=== PATIENT | female | born 1975 | race American Indian/Alaskan Native ===

== ENCOUNTER 2017-07-29 17:29 | Emergency (ER) | payer BC, OTHER ==
[2017-07-29 18:37] LABS: Basophils % (Auto) 0.5 % (0.0-1.8); Eosinophils % (Auto) 1.5 % (0.0-4.3); Hematocrit 46.2 % (30.3-42.9); Hemoglobin 15.3 gm/dl (10.1-14.3); Mean Corpuscular HGB Conc 33 % (30-34); Mean Corpuscular Hemoglobin 31 pg (28-32); Mean Corpuscular Volume 93 fl (79-97); Platelet Count 179 K/mm3 (140-440); Red Blood Count 4.95 M/mm3 (3.65-5.03); Red Cell Distribution Width 14.8 % (13.2-15.2); White Blood Count 5.7 K/mm3 (4.5-11.0)
[2017-07-29 18:42] LABS: Anion Gap 20 mmol/L; BUN/Creatinine Ratio 16; Blood Urea Nitrogen 16 mg/dL (7-17); Calcium 9.3 mg/dL (8.4-10.2); Carbon Dioxide 24 mmol/L (22-30); Chloride 97.1 mmol/L (98-107); Glucose 84 mg/dL (65-100); Potassium 3.8 mmol/L (3.6-5.0); Sodium 137 mmol/L (137-145)
[2017-07-30] MEDS ORDERED: BENADRYL IV ONE (01:42)
[2017-07-30] MEDS ORDERED: REGLAN IV ONE (01:42)
[2017-07-30] MEDS ORDERED: TYLENOL PO ONE (01:42)
[2017-07-30] MEDS ORDERED: PEPCID IV ONE (01:42)
[2017-07-30] MEDS ORDERED: BENTYL PO ONE (01:42)
[2017-07-30] MEDS ORDERED: CARAFATE PO ONE (01:42)
[2017-07-30] MEDS ORDERED: NACL 0.9% 500 ML 500 ML IV ONE (01:43)
--- NOTE | 2017-07-30 01:43 | Emergency Department Report ---
ED General Adult HPI - General Chief complaint: Chest Pain Stated complaint: HYPERTENSIVE/HEADACHE/CHEST PAIN Time Seen by Provider: 07/30/17 01:25 Source: patient, RN notes reviewed, old records reviewed Mode of arrival: Ambulatory Limitations: No Limitations - History of Present Illness Initial comments: This is a 42-year-old female who is previously known to this provider. The patient has a past medical history of hypertension. The patient presents to the ER with 2 complaints. Her first complaint is headache. The headache has been present for 4-5 days. It started gradually a few days ago. It started in the occipital region, and then radiated to the mid scalp in the frontal region. The headache is not sudden or thunderclap in nature. It did not reach maximal intensity within an hour. It is not the worse headache of her life. Patient reports worst headache of her life a few months ago. She further reports that her mother has a family history of aneurysm. However there is no family history of aneurysm and her brothers or sisters. There is no posterior neck pain or neck stiffness. There is no neck rigidity. The patient's next complaint is chest pain. The chest pain is central. It does not radiate to the back, arms or neck. There is no vomiting, shortness of breath or diaphoresis. Patient reports that she is not , reports that she hasn't given in the past 2 months. Patient reports that she does not take control tablets, there is no leg pain, there is no leg swelling, no DVT or pulmonary embolus risk factors. Patient admitted to the hospital for chest pain last year, had a negative nuclear stress test. Patient denies recent aspirin use and/or cocaine use. -: Gradual Location: head, chest Quality: aching Consistency: intermittent Improves with: none Worsens with: none Associated Symptoms: chest pain, headaches. denies: shortness of breath - Related Data Home Medications Medication Instructions Recorded Confirmed Last Taken Citalopram Hydrobromide [celeXA] 20 mg PO DAILY 07/01/16 07/01/16 Unknown Hydrochlorothiazide 25 mg PO DAILY 07/01/16 07/01/16 Unknown Previous Rx's Medication Instructions Recorded Last Taken Type Acetaminophen [Tylenol Arthritis] 650 mg PO Q6HR PRN #30 tablet.er 07/30/17 Unknown Rx Ibuprofen [Motrin] 600 mg PO Q8H PRN #30 tablet 07/30/17 Unknown Rx Allergies Allergy/AdvReac Type Severity Reaction Status Date / Time No Known Allergies Allergy Verified 05/27/14 02:05 ED Review of Systems ROS: Stated complaint: HYPERTENSIVE/HEADACHE/CHEST PAIN Other details as noted in HPI Constitutional: denies: fever Eyes: denies: eye discharge ENT: denies: epistaxis Respiratory: see HPI Cardiovascular: as per HPI Gastrointestinal: denies: vomiting Genitourinary: as per HPI Musculoskeletal: as per HPI Skin: as per HPI Neurological: headache ED Past Medical Hx - Past Medical History Hx Hypertension: Yes Hx Kidney Stones: Yes (2011) - Surgical History Additional Surgical History: TUBAL LIGATION 1999. - Social History Smoking Status: Current Every Day Smoker Substance Use Type: Alcohol, Marijuana - Medications Home Medications: Home Medications Medication Instructions Recorded Confirmed Last Taken Type Citalopram Hydrobromide [celeXA] 20 mg PO DAILY 07/01/16 07/01/16 Unknown History Hydrochlorothiazide 25 mg PO DAILY 07/01/16 07/01/16 Unknown History Acetaminophen [Tylenol Arthritis] 650 mg PO Q6HR PRN #30 tablet.er 07/30/17 Unknown Rx Ibuprofen [Motrin] 600 mg PO Q8H PRN #30 tablet 07/30/17 Unknown Rx ED Physical Exam - General Limitations: No Limitations General appearance: alert, in no apparent distress - Head Head exam: Present: atraumatic, normocephalic - Eye Eye exam: Present: normal appearance, PERRL, EOMI, other (visual acuity intact to finger counting, color perception, reading at a close distance). Absent: nystagmus - ENT ENT exam: Present: normal exam, normal orophraynx, mucous membranes moist, normal external ear exam - Neck Neck exam: Present: normal inspection, full ROM - Respiratory Respiratory exam: Present: normal lung sounds bilaterally. Absent: respiratory distress - Cardiovascular Cardiovascular Exam: Present: regular rate, normal rhythm, normal heart sounds. Absent: systolic murmur, diastolic murmur, rubs, gallop - GI/Abdominal GI/Abdominal exam: Present: soft, normal bowel sounds. Absent: distended, tenderness, guarding, rebound, rigid, pulsatile mass - Extremities Exam Extremities exam: Present: normal inspection, full ROM, normal capillary refill. Absent: pedal edema, joint swelling, calf tenderness - Back Exam Back exam: Present: normal inspection, full ROM. Absent: tenderness, CVA tenderness (R), paraspinal tenderness, vertebral tenderness - Neurological Exam Neurological exam: Present: alert, oriented X3, CN II-XII intact, normal gait, other (Extraocular movements intact. Tongue midline. No facial droop. Facial sensation intact to light touch in the V1, V2, V3 distribution bilaterally. 5 and 5 strength in 4 extremities.. Sensation is intact to light touch in 4 extremities.). Absent: motor sensory deficit - Psychiatric Psychiatric exam: Present: normal affect, normal mood - Skin Skin exam: Present: warm, dry, intact, normal color. Absent: rash ED Course Vital Signs 07/29/17 07/30/17 07/30/17 17:55 01:50 02:00 Temperature 98.1 F Pulse Rate 75 62 68 Respiratory 16 15 17 Rate Blood Pressure 151/95 135/89 O2 Sat by Pulse 100 99 100 Oximetry 07/30/17 07/30/17 07/30/17 02:10 02:20 02:30 Temperature Pulse Rate 67 63 63 Respiratory 10 L 16 15 Rate Blood Pressure 133/92 139/88 146/92 O2 Sat by Pulse 99 100 98 Oximetry 07/30/17 07/30/17 07/30/17 02:40 02:50 03:00 Temperature Pulse Rate 68 76 76 Respiratory 13 20 16 Rate Blood Pressure 146/92 158/86 146/92 O2 Sat by Pulse 100 99 98 Oximetry 07/30/17 07/30/17 07/30/17 03:52 04:00 04:10 Temperature Pulse Rate 74 72 69 Respiratory 10 L 16 21 Rate Blood Pressure 166/85 134/87 134/87 O2 Sat by Pulse 99 98 99 Oximetry 07/30/17 07/30/17 07/30/17 04:20 04:24 04:26 Temperature Pulse Rate 68 68 Respiratory 9 L 17 14 Rate Blood Pressure 127/79 166/85 O2 Sat by Pulse 99 99 99 Oximetry 07/30/17 07/30/17 07/30/17 04:27 04:30 04:36 Temperature 98.2 F Pulse Rate 72 72 Respiratory 15 15 Rate Blood Pressure 131/82 131/82 O2 Sat by Pulse 100 98 Oximetry 07/30/17 07/30/17 07/30/17 04:40 04:45 04:50 Temperature Pulse Rate 71 61 62 Respiratory 19 12 16 Rate Blood Pressure 131/82 133/66 133/66 O2 Sat by Pulse 98 100 99 Oximetry 07/30/17 07/30/17 07/30/17 04:56 05:00 05:06 Temperature Pulse Rate 62 68 70 Respiratory 16 13 12 Rate Blood Pressure 133/66 129/92 129/92 O2 Sat by Pulse 99 99 99 Oximetry 07/30/17 07/30/17 07/30/17 05:10 05:15 05:20 Temperature Pulse Rate 72 70 67 Respiratory 15 14 19 Rate Blood Pressure 129/92 122/86 122/86 O2 Sat by Pulse 99 98 99 Oximetry - Reevaluation(s) Reevaluation #1: 07/30/17 03:02 Differential diagnosis, including but not limited to: Migraine headache, tension headache, cluster headache, aneurysm, acute coronary syndrome, pneumonia , GERD, gastritis, costochondritis, reflux, hiatal hernia Assessment and plan: 42-year-old female with 2 complaints. Patient's headache by history does not appear to be consistent with subarachnoid hemorrhage. She is afebrile with reassuring vital signs, has a GCS of 15, NIH score of 0. However, given family history of aneurysm, we will obtain CT scan of the brain without contrast, and CT angiogram of the head and neck with contrast. Extensive discussion had with the patient and family, I did offer the patient a spinal tap, however I don't believe that by her history and physical, her presentation today does not appear to be consistent with a ruptured aneurysmal subarachnoid hemorrhage. Patient does not want to have a spinal tap and is declining a spinal tap, and is okay with just a CT angiogram. We have reached this through shared decision making. Chest pain atypical, troponin negative 3, low risk by RAAD score, low risk by heart score, low risk by well's criteria, no pulmonary M [place] or DVT risk factors, low risk by well's criteria, perc negative EKG abnormal, but unchanged from prior, patient had a negative nuclear stress test last year, there are some nonspecific ST abnormalities in the patient's EKG , however her EKG today appears to be unchanged from prior. Again extensive discussion had with the patient, I did offer the patient admission to the hospital for repeat acute coronary syndrome risk stratification, however patient does want to follow up as an outpatient with cardiology, given that she' s been having chest pain. Days, that her EKG appears to be unchanged from prior , given that she has multiple negative troponins, given the patient is laughing and smiling and appears very comfortable on her stretcher, she promises me she' ll follow up closely as an outpatient, I think outpatient evaluation for chest pain is reasonable. Reevaluation #2: 07/30/17 04:[address] scan of the brain negative. Angiogram interpretation is pending Reevaluation #3: 07/30/17 04:54 CT angiogram of the neck is negative Reevaluation #4: 07/30/17 05:19 CT scan of the brain negative for acute findings. Patient feels improved. Patient will be discharged. ED Medical Decision Making - Lab Data Result diagrams: 07/29/17 18:01 07/29/17 18:01 Vital Signs 07/29/17 17:55 Temperature 98.1 F Pulse Rate 75 Respiratory 16 Rate Blood Pressure 151/95 O2 Sat by Pulse 100 Oximetry Lab Results 07/29/17 07/29/17 07/29/17 Range/Units 18:01 18:01 19:50 WBC 5.7 (4.5-11.0) K/mm3 RBC 4.95 (3.65-5.03) M/mm3 Hgb 15.3 H (10.1-14.3) gm/dl Hct 46.2 H (30.3-42.9) % MCV 93 (79-97) fl MCH 31 (28-32) pg MCHC 33 (30-34) % RDW 14.8 (13.2-15.2) % Plt Count 179 (140-440) K/mm3 Lymph % (Auto) 52.7 H (13.4-35.0) % [place] % (Auto) 9.7 H (0.0-7.3) % Eos % (Auto) 1.5 (0.0-4.3) % Baso % (Auto) 0.5 (0.0-1.8) % Lymph # 3.0 (1.2-5.4) K/mm3 [place] # 0.5 (0.0-0.8) K/mm3 Eos # 0.1 (0.0-0.4) K/mm3 Baso # 0.0 (0.0-0.1) K/mm3 Seg Neutrophils % 35.6 L (40.0-70.0) % Seg Neutrophils # 2.0 (1.8-7.7) K/mm3 Sodium 137 (137-145) mmol/L Potassium 3.8 (3.6-5.0) mmol/L Chloride 97.1 L (98-107) mmol/L Carbon Dioxide 24 (22-30) mmol/L Anion Gap 20 mmol/L BUN 16 (7-17) mg/dL Creatinine 1.0 (0.7-1.2) mg/dL Estimated GFR > 60 ml/min BUN/Creatinine Ratio 16 % Glucose 84 (65-100) mg/dL Calcium 9.3 (8.4-10.2) mg/dL Troponin T < 0.010 < 0.010 (0.00-0.029) ng/mL 07/29/17 Range/Units 23:11 WBC (4.5-11.0) K/mm3 RBC (3.65-5.03) M/mm3 Hgb (10.1-14.3) gm/dl Hct (30.3-42.9) % MCV (79-97) fl MCH (28-32) pg MCHC (30-34) % RDW (13.2-15.2) % Plt Count (140-440) K/mm3 Lymph % (Auto) (13.4-35.0) % [place] % (Auto) (0.0-7.3) % Eos % (Auto) (0.0-4.3) % Baso % (Auto) (0.0-1.8) % Lymph # (1.2-5.4) K/mm3 [place] # (0.0-0.8) K/mm3 Eos # (0.0-0.4) K/mm3 Baso # (0.0-0.1) K/mm3 Seg Neutrophils % (40.0-70.0) % Seg Neutrophils # (1.8-7.7) K/mm3 Sodium (137-145) mmol/L Potassium (3.6-5.0) mmol/L Chloride (98-107) mmol/L Carbon Dioxide (22-30) mmol/L Anion Gap mmol/L BUN (7-17) mg/dL Creatinine (0.7-1.2) mg/dL Estimated GFR ml/min BUN/Creatinine Ratio % Glucose (65-100) mg/dL Calcium (8.4-10.2) mg/dL Troponin T < 0.010 (0.00-0.029) ng/mL - EKG Data -: EKG Interpreted by Me - EKG Data 07/30/17 03:05 Normal sinus, 72 bpm, normal axis, atrial enlargement, T-wave inversions V4, V5 and V6, incomplete right bundle branch block, abnormal EKG, appears unchanged when compared to prior from 2016, with the exception of negative we deflected T- wave in V3. EKG #2 demonstrates sinus, 67 bpm, normal axis, normal intervals, numerous T- wave abnormalities, appears unchanged from prior EKG from June 2016. - Radiology Data Radiology results: report reviewed, image reviewed X-ray the chest is negative Critical care attestation.: If time is entered above; I have spent that time in minutes in the direct care of this critically ill patient, excluding procedure time. ED Disposition Clinical Impression: Chest pain, Headache Disposition: - TO HOME OR SELFCARE Is pt being admited?: No Does the pt Need Aspirin: No Condition: Stable Instructions: Chest Pain (ED) Additional Instructions: Continue outpatient medications. 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 Follow up with her primary care doctor for headache within the next 7- 10 days. Return to the ER right away with new pain, worsened pain, migration of pain, fevers, chills, lethargy, irritability, projectile vomiting, change in mental status, confusion, new pain, worsened pain, migration of pain. Prescriptions: Acetaminophen [Tylenol Arthritis] 650 mg PO Q6HR PRN #30 tablet.er PRN Reason: Pain Ibuprofen [Motrin] 600 mg PO Q8H PRN #30 tablet PRN Reason: Pain Referrals: PRIMARY CARE,MD [Primary Care Provider] - 3-5 Days [facility] [Provider Group] - 3-5 Days [facility] [Provider Group] - 3-5 Days Forms: Work/School Release Form(ED)
[2017-07-30] MEDS ORDERED: NACL ONE (01:59)
--- NOTE | 2017-07-30 02:15 | XRay Report ---
FINAL REPORT PROCEDURE: XR CHEST 1V AP TECHNIQUE: Chest radiograph anteroposterior view. CPT 05683 HISTORY: cp COMPARISON: No prior studies are available for comparison. FINDINGS: Heart: Normal. Mediastinum/Vessels: Normal. Lungs/Pleural space: Lungs are clear. There are no infiltrates, effusions or pneumothoraces.. Bony thorax: No acute osseous abnormality. Life support devices: None. IMPRESSION: No acute cardiopulmonary abnormality.
--- NOTE | 2017-07-30 04:33 | Cat Scan Report ---
FINAL REPORT PROCEDURE: CT HEAD/BRAIN WO CON TECHNIQUE: Computerized tomography of the head was performed without contrast material. HISTORY: Headache COMPARISON: No prior studies are available for comparison. FINDINGS: Skull and scalp: Normal. Paranasal sinuses: Normal. Ventricles and subarachnoid spaces: Normal. Cerebrum: No evidence of hemorrhage, acute infarction or mass . Cerebellum and brainstem: No evidence of hemorrhage, acute infarction or mass. Vasculature: Normal. Comments: None. IMPRESSION: Normal Examination
--- NOTE | 2017-07-30 04:47 | Cat Scan Report ---
FINAL REPORT PROCEDURE: CT ANGIO NECK TECHNIQUE: Computerized tomographic angiography of the neck was performed after the IV injection of iodinated nonionic contrast including image processing. The image data was postprocessed using 2-dimensional multiplanar reformatted (MPR) and 3-dimensional (MIP and/or volume rendered) techniques. HISTORY: [place] COMPARISON: No prior studies are available for comparison. Note: Assessment of carotid artery stenosis is based on measurement of the distal internal carotid artery diameter as the denominator for stenosis calculations and the [place] Symptomatic Carotid Endarterectomy Trial (NASCET) stenosis criteria . CPT 3100F FINDINGS: Sinuses: Normal . Non vascular cervical structures: No significant abnormality . Aortic arch: Normal . Right carotid artery: Normal . Left carotid artery: Normal . Vertebral arteries: Normal . IMPRESSION: There is no carotid stenosis, thrombosis or dissection. Vertebral arteries are patent and normal in caliber.
--- NOTE | 2017-07-30 05:17 | Cat Scan Report ---
FINAL REPORT PROCEDURE: CT ANGIO HEAD TECHNIQUE: Computerized tomographic angiography of the head was performed after the IV injection of iodinated nonionic contrast including image processing. The image data was postprocessed using 2-dimensional multiplanar reformatted (MPR) and 3-dimensional (MIP and/or volume rendered) techniques. HISTORY: [place] COMPARISON: No prior studies are available for comparison. FINDINGS: Cerebrum: No evidence of hemorrhage, acute ischemia or mass. Cerebellum: No evidence of hemorrhage, acute ischemia or mass. Subarachnoid spaces and ventricles: Normal. Intracranial vessels: Carotid siphon: Normal. Anterior cerebral: There is an azygos anterior cerebral artery which is a normal variation. Middle cerebral: Normal. Posterior cerebral:Normal. Vertebral arteries including basilar: Normal. Aneurysms: None. Dural sinuses: Normal. IMPRESSION: There is no intracranial arterial stenosis, thrombosis, dissection or aneurysm. There is no vascular malformation. The dural sinuses are patent.
[2017-07-30 05:28] VITALS: BP 122/86
== END 2017-07-30 05:44 | disposition home or self-care (01) ==
LOC: ED 17:29
DX: R51 Headache (principal); R07.9 Chest pain, unspecified; I10 Essential (primary) hypertension; F17.200 Nicotine dependence, unspecified, uncomplicated; F12.10 Cannabis abuse, uncomplicated
CPT/HCPCS: 36415; 70450; 70496; 70498; 71010; 80048; 84484; 85025; 93005; 93010; 96374; 96375; 99285; J1200; J2765; J7040; Q9967